=== PATIENT | female | born 1940 | race Two or more races ===

== ENCOUNTER 2018-02-06 21:37 | Inpatient (IN) | payer MEDICARE, OTHER ==
[~2018-02-06] VITALS: Ht 157.5 cm; Wt 50.3 kg
--- NOTE | 2018-02-06 21:50 | NUR ---
BIBFAMILY C/O ALTERED MENTAL STATUS X 3 DAYS. PER FAMILY STATES PT ON NEW MEDICATION DOSAGE. NAD NOTED, VSS, RESP EVEN AND UNLABORED, PT WAS PUT ON MONITOR. WAITING FOR MD SINGER.
[2018-02-06] MEDS ORDERED: IV NS 0.9% 1,000 ML BAG IV ONE (22:30)
[2018-02-06 22:45] LABS: BASOPHILS # (AUTO) 0.1 /CMM (0.0-0.2); BASOPHILS % (AUTO) 0.7 % (0.0-2.0); EOSINOPHILS % (AUTO) 0.8 % (0.0-6.0); HEMATOCRIT 34 % (33-45); HEMOGLOBIN 11.8 g/dL (11.5-14.8); LYMPHOCYTES # (AUTO) 1.6 /CMM (0.8-4.8); LYMPHOCYTES % (AUTO) 20.5 % (20.0-44.0); MEAN CORPUSCULAR HGB CONC 35 g/dl (31.0-36.0); MEAN CORPUSCULAR VOLUME 86 fL (82-100); MONOCYTES # (AUTO) 0.7 /CMM (0.1-1.30); MONOCYTES % (AUTO) 8.6 % (2.0-12.0); NEUTROPHILS # (AUTO) 5.3 /CMM (1.8-8.9); NEUTROPHILS % (AUTO) 69.4 % (43.0-81.0); PLATELET COUNT (AUTO) 271 /CMM (150-450); RDW COEFFICIENT OF VARIATION 14.3 (11.5-15.0); RED BLOOD CELL COUNT(AUTO) 3.95 MIL/uL (4.0-5.2); WHITE BLOOD COUNT (AUTO) 7.6 K/uL (4.3-11.0)
[2018-02-06 22:50] LABS: INR 0.96 (0.87-1.13)
[2018-02-06 22:54] LABS: ALANINE AMINOTRANSFERASE 386 U/L (12-78); ALBUMIN 3.2 g/dL (3.4-5.0); ALKALINE PHOSPHATASE 102 U/L (46-116); ASPARTATE AMINOTRANSFERASE 142 U/L (15-37); BILIRUBIN,DIRECT 0.3 mg/dL (0.0-0.2); BILIRUBIN,TOTAL 0.8 mg/dL (0.2-1.0); CALCIUM, SERUM 9.7 mg/dL (8.5-10.1); CARBON DIOXIDE 25 mmol/L (21-32); CHLORIDE 110 mmol/L (98-107); CREATININE 1.4 mg/dL (0.6-1.3); GLUCOSE 111 mg/dL (74-106); POTASSIUM 3.3 mmol/L (3.5-5.1); SODIUM SERUM 145 mmol/L (136-145); TOTAL PROTEIN, SERUM 6.9 g/dL (6.4-8.2); TROPONIN I 0.038 ng/mL (0.00-0.056); UREA NITROGEN, BLOOD 36 mg/dL (7-18)
--- NOTE | 2018-02-06 22:54 | NUR ---
urine collected, called lab for mixing picker tender
[2018-02-06 23:09] LABS: APPEARANCE,URINE CLEAR (CLEAR); BILIRUBIN,URINE 2+ (NEGATIVE); BLOOD, URINE NEGATIVE Ery/uL (NEGATIVE); KETONES,URINE 1+ (NEGATIVE); LEUKOCYTE ESTERASE ,URINE NEGATIVE (NEGATIVE); NITRITE, URINE NEGATIVE (NEGATIVE); PH,URINE 5.5 (5.0-8.0); PROTEIN,URINE 1+ mg/dl (NEGATIVE); UGLUCOSE NEGATIVE (NEGATIVE)
[2018-02-06 23:10] LABS: COLOR,URINE DARK YELLOW (YELLOW)
--- NOTE | 2018-02-06 23:19 | NUR ---
pt back from ctscan
[2018-02-06 23:20] LABS: BACTERIA,URINE Few /HPF (None Seen); RBC,URINE 0-2 /HPF (0-2); SQUAMOUS EPITHELIAL CELL,UR Few /HPF (None Seen); WBC,URINE 0-2 /HPF (0-3)
[2018-02-06 23:21] LABS: MUCUS,URINE Few /LPF (None Seen)
--- NOTE | 2018-02-07 00:11 | NUR ---
REPORT GIVEN TO DEEPA/RN AT THIS TIME. PT AND FAMILY AWARE AND AGREE TO THE PLAN OF CARE. TO BE TRANSPORTED TO [facility] IN STABLE CONDITION. RESP EVEN AND UNLABORED.
[2018-02-07 01:15] VITALS: BP 142/78
[2018-02-07] MEDS ORDERED: DONE5TAB7 PO (01:39)
[2018-02-07] MEDS ORDERED: VALS80TA2 PO (01:39)
[2018-02-07] MEDS ORDERED: TRAZ-182 PO (01:39)
[2018-02-07] MEDS ORDERED: LANS30CA54 PO (01:39)
[2018-02-07] MEDS ORDERED: CYAN10009 PO (01:39)
[2018-02-07] MEDS ORDERED: ASPI-605 PO (01:39)
[2018-02-07] MEDS ORDERED: MIRT15TA7 PO (01:39)
--- NOTE | 2018-02-07 02:13 | NUR ---
MS RN NOTES RECEIVED PT FROM ER ON ROOM AIR SATURATING 100%. BLOOD PRESSURE OF 142/78MMHG, TEMPT OF 97.6 HR OF 94, RR OF 17. PT IS IN NO APPARENT DISTRESS. DAUGHTER AT BEDSIDE. NO CONFUSION OR AGITATION AT THE MOMENT. ADMITTING ORDERS IN. ADMISSION ASSESSMENT DONE. WILL CONTINUE TO MONITOR PT CLOSELY.
--- NOTE | 2018-02-07 02:34 | NUR ---
MS RN NOTES NO POTASSIUM 20MEQ IN THE OMNICELL. NURSING STEAM TENDER MADE AWARE OF IT.
[2018-02-07] MEDS ORDERED: IV PREMIX NS +20MEQ KCL 1 L IV ONE (03:10)
[2018-02-07] MEDS: Potassium Chloride 20 MEQ in IV NS 0.9% 1,000 ML IV PRN ×2 (03:15→15:52)
[2018-02-07 04:00] VITALS: BP 140/74
[2018-02-07 06:47] LABS: BASOPHILS % (AUTO) 0.2 % (0.0-2.0); HEMATOCRIT 30 % (33-45); HEMOGLOBIN 10.4 g/dL (11.5-14.8); LYMPHOCYTES # (AUTO) 1.8 /CMM (0.8-4.8); LYMPHOCYTES % (AUTO) 26.6 % (20.0-44.0); MEAN CORPUSCULAR HGB CONC 35 g/dl (31.0-36.0); MEAN CORPUSCULAR VOLUME 86 fL (82-100); MONOCYTES # (AUTO) 0.6 /CMM (0.1-1.30); MONOCYTES % (AUTO) 9.4 % (2.0-12.0); NEUTROPHILS # (AUTO) 4.3 /CMM (1.8-8.9); NEUTROPHILS % (AUTO) 62.8 % (43.0-81.0); PLATELET COUNT (AUTO) 223 /CMM (150-450); RDW COEFFICIENT OF VARIATION 14.8 (11.5-15.0); RED BLOOD CELL COUNT(AUTO) 3.48 MIL/uL (4.0-5.2); WHITE BLOOD COUNT (AUTO) 6.9 K/uL (4.3-11.0)
[2018-02-07 07:06] LABS: ALANINE AMINOTRANSFERASE 338 U/L (12-78); ALBUMIN 2.7 g/dL (3.4-5.0); ALKALINE PHOSPHATASE 90 U/L (46-116); ASPARTATE AMINOTRANSFERASE 136 U/L (15-37); BILIRUBIN,TOTAL 0.6 mg/dL (0.2-1.0); CALCIUM, SERUM 8.8 mg/dL (8.5-10.1); CARBON DIOXIDE 22 mmol/L (21-32); CHLORIDE 113 mmol/L (98-107); CREATININE 1.1 mg/dL (0.6-1.3); GLUCOSE 86 mg/dL (74-106); POTASSIUM 3.3 mmol/L (3.5-5.1); SODIUM SERUM 145 mmol/L (136-145); TOTAL PROTEIN, SERUM 5.8 g/dL (6.4-8.2)
--- NOTE | 2018-02-07 07:19 | NUR ---
MS RN NOTES NO ACUTE CHANGES NOTED DURING THE SHIFT. PROVIDED COMFORT AND SAFETY. DUE MEDS GIVEN. WILL ENDORSE TO THE AM FOR LINDA.
--- NOTE | 2018-02-07 07:33 | NUR ---
MS RN OPENING NOTES RECEIVED PATIENT IN STABLE CONDITION. IN NO APPARENT DISTRESS. IV LINE IS INTACT AND PATENT. BEDSIDE RAILS ARE UPX2. BED IS LOCKED AND LOWERED. CALL LIGHT IS WITHIN REACH. WILL CONTINUE TO MONITOR.
[2018-02-07 07:40] LABS: UREA NITROGEN, BLOOD 29 mg/dL (7-18)
[2018-02-07 08:00] VITALS: BP_SYST 138; BP_SYST 155; BP_DIAS 68; BP_DIAS 79
[2018-02-07] MEDS: PANTOPRAZOLE 40 MG TABLET.DR PO SCH (08:28)
[2018-02-07] MEDS: CYANOCOBALAMIN 500 MCG TABLET PO SCH (09:00)
[2018-02-07] MEDS: VALSARTAN 80 MG TABLET PO SCH (09:00)
[2018-02-07] MEDS: ASPIRIN EC 81 MG TABLET.DR PO SCH (09:00)
[2018-02-07] MEDS: CIPROFLOXACIN IV RTU 400 MG in PREMIX 1 EA IV SCH ×2 (13:53→23:05)
[2018-02-07] MEDS: OLANZAPINE 2.5 MG TABLET PO SCH ×2 (13:53→23:06)
--- NOTE | 2018-02-07 14:32 | NUR ---
Patient resides at home with family. He requires assistance with adl's. Has hx of dementia and anxiety. Family is involved and supportive with adl's. Possible geropsyche admit once medically clear. Addendum: 02/07/18 at 1432 by AP CRAIG RN Amended: Links added.
[2018-02-07] MEDS: LORAZEPAM INJ 2 MG/ML VIAL IV PRN (15:50)
--- NOTE | 2018-02-07 16:00 | NUR ---
GAVE ATIVAN 1MG IV FOR INCREASED ANXIETY.
[2018-02-07] MEDS: DONEPEZIL 5 MG TABLET PO SCH (17:12)
[2018-02-07] MEDS ORDERED: TRAZODONE 50 MG TABLET PO SCH (18:00)
[2018-02-07] MEDS ORDERED: MIRTAZAPINE 15 MG TABLET PO SCH ×2 (18:00)
--- NOTE | 2018-02-07 18:04 | NUR ---
MS RN CLOSING NOTES PATIENT IS RESTING SITTING ON CHAIR IN NO APPARENT DISTRESS. SITTER AT BEDSIDE. CALL LIGHT IS WITHIN REACH. ALL NEEDS WERE MET. IV LINE IS INTACT AND PATENT. WILL ENDORSE CARE TO ROLLER SKATER NURSE FOR LINDA.
[2018-02-07 20:00] VITALS: BP 142/78
--- NOTE | 2018-02-07 20:00 | NUR ---
RN INITIAL NOTES RECEIVED PATIENT IN STABLE CONDITION. PT HAS A 1:1 SITTER. DAUGHTER AT BEDSIDE. IN NO APPARENT DISTRESS. IV LINE IS INTACT AND PATENT. BEDSIDE RAILS ARE UPX2. BED IS LOCKED AND LOWERED. CALL LIGHT IS WITHIN REACH. WILL CONTINUE TO MONITOR.
[2018-02-07] MEDS: ATORVASTATIN 10 MG TABLET PO SCH (23:05)
[2018-02-08 04:00] VITALS: BP 131/69
[2018-02-08] MEDS: Potassium Chloride 20 MEQ in IV NS 0.9% 1,000 ML IV PRN ×2 (05:09→18:11)
--- NOTE | 2018-02-08 06:30 | NUR ---
RN CLOSING NOTES PATIENT IS RESTING IN BED, NO APPARENT DISTRESS. SITTER AT BEDSIDE. CALL LIGHT IS WITHIN REACH. ALL NEEDS WERE MET. IV LINE IN 324G IN R WRIST IS INTACT AND PATENT. WILL ENDORSE CARE TO AM SHIFT NURSE FOR LINDA.
[2018-02-08 06:39] LABS: BASOPHILS % (AUTO) 0.1 % (0.0-2.0); EOSINOPHILS % (AUTO) 1.8 % (0.0-6.0); HEMATOCRIT 27 % (33-45); HEMOGLOBIN 9.4 g/dL (11.5-14.8); LYMPHOCYTES # (AUTO) 1.6 /CMM (0.8-4.8); LYMPHOCYTES % (AUTO) 29.9 % (20.0-44.0); MEAN CORPUSCULAR HGB CONC 35 g/dl (31.0-36.0); MEAN CORPUSCULAR VOLUME 86 fL (82-100); MONOCYTES # (AUTO) 0.5 /CMM (0.1-1.30); MONOCYTES % (AUTO) 10.2 % (2.0-12.0); NEUTROPHILS # (AUTO) 3.1 /CMM (1.8-8.9); PLATELET COUNT (AUTO) 195 /CMM (150-450); RDW COEFFICIENT OF VARIATION 14.8 (11.5-15.0); RED BLOOD CELL COUNT(AUTO) 3.19 MIL/uL (4.0-5.2); WHITE BLOOD COUNT (AUTO) 5.3 K/uL (4.3-11.0)
[2018-02-08 06:48] LABS: CALCIUM, SERUM 8.2 mg/dL (8.5-10.1); CARBON DIOXIDE 24 mmol/L (21-32); CHLORIDE 111 mmol/L (98-107); CREATININE 1.1 mg/dL (0.6-1.3); GLUCOSE 102 mg/dL (74-106); MAGNESIUM 1.5 mg/dL (1.8-2.4); PHOSPHORUS 2.3 mg/dL (2.5-4.9); POTASSIUM 3.1 mmol/L (3.5-5.1); SODIUM SERUM 143 mmol/L (136-145); UREA NITROGEN, BLOOD 18 mg/dL (7-18)
[2018-02-08] MEDS: PANTOPRAZOLE 40 MG TABLET.DR PO SCH (07:30)
--- NOTE | 2018-02-08 08:00 | NUR ---
MS/RN Vital signs Patient refusing vital signs to be taken.
[2018-02-08] MEDS: CIPROFLOXACIN IV RTU 400 MG in PREMIX 1 EA IV SCH ×2 (08:14→22:42)
[2018-02-08] MEDS: VALSARTAN 80 MG TABLET PO SCH (08:15)
[2018-02-08] MEDS: ASPIRIN EC 81 MG TABLET.DR PO SCH (08:15)
[2018-02-08] MEDS: OLANZAPINE 2.5 MG TABLET PO SCH (08:16)
[2018-02-08] MEDS: CYANOCOBALAMIN 500 MCG TABLET PO SCH (08:16)
--- NOTE | 2018-02-08 09:15 | NUR ---
MS/RN Refusing medications Refusing all oral medications, will reattempt later this morning.
[2018-02-08] MEDS: OLANZAPINE 5 MG/TAB.RAPDIS PO SCH ×2 (10:00→22:42)
[2018-02-08] MEDS ORDERED: OLANZAPINE 10 MG VIAL IM PRN (10:00)
[2018-02-08] MEDS: Magnesium 1GM/D5W 100ML PREMIX 100 ML IV SCH ×2 (10:29→11:09)
--- NOTE | 2018-02-08 10:30 | NUR ---
MS/RN Labs Labs reviewed: -mag - 1.5, replaced with 2gm -k+ 3.3, replaced with 10meq
--- NOTE | 2018-02-08 10:47 | NUR ---
MS/RN Refusing skin assessment Patient refusing for skin assessment.
--- NOTE | 2018-02-08 10:51 | NUR ---
MS/RN S/B Dr Rogel Seen by Dr Rogel - medications adjusted, for possible GPS admission when medically cleared. Made aware that patient continues to take oral medications.
[2018-02-08] MEDS: POTASSIUM CL. PREMIX PERIPHER. 50 ML IV SCH ×2 (11:30→12:11)
--- NOTE | 2018-02-08 14:00 | NUR ---
MS/RN S/B Julianne Rodrigues READINESS PARAPROFESSIONAL Seen by READINESS PARAPROFESSIONAL - made aware that patient continues to refuse all medications and eat or drink. Once medically cleared, will transfer to [facility].
[2018-02-08] MEDS ORDERED: K PHOS NEUTRAL 250 MG TABLET PO ONE (15:30)
[2018-02-08] MEDS: DONEPEZIL 5 MG TABLET PO SCH (17:01)
[2018-02-08] MEDS: LORAZEPAM INJ 2 MG/ML VIAL IV PRN (18:11)
--- NOTE | 2018-02-08 18:23 | NUR ---
MS/RN End note Family at bedside and updated to plan of care. Patient continues to refuse to eat, drink or take medications. Ativan 1mg given to relax patient. Safety measures in place, sitter remains within arms reach of patient at all times. Will endorse to warehouse supervisor 3rd shift.
[2018-02-08 20:00] VITALS: BP 131/69
[2018-02-08] MEDS: ATORVASTATIN 10 MG TABLET PO SCH (22:43)
[2018-02-09] MEDS ORDERED: OLANZAPINE 10 MG VIAL IM PRN (00:30)
[2018-02-09 04:00] VITALS: BP 114/91
[2018-02-09 06:45] LABS: CALCIUM, SERUM 8.4 mg/dL (8.5-10.1); CARBON DIOXIDE 23 mmol/L (21-32); CHLORIDE 113 mmol/L (98-107); CREATININE 1.3 mg/dL (0.6-1.3); GLUCOSE 96 mg/dL (74-106); MAGNESIUM 1.9 mg/dL (1.8-2.4); POTASSIUM 4.3 mmol/L (3.5-5.1); SODIUM SERUM 145 mmol/L (136-145); UREA NITROGEN, BLOOD 14 mg/dL (7-18)
--- NOTE | 2018-02-09 07:10 | NUR ---
MS RN OPENING NOTES RECEIVED PT FROM NIGHTSHIFT NURSE IN STABLE CONDITION. PT IS A/O X2. NO SOB OR SIGNS OF DISTRESS NOTED. BREATHING IS EVEN AND UNLABORED. PT REFUSING AM VITALS. PER NIGHTSHIFT NURSE, SHE HAS REFUSED ALL MEDICATION ADMINISTRATION ALONG WITH CARE. IV TO RIGHT WRIST NOTED TO BE PATENT AND INTACT. NO REDNESS OR SIGNS OF INFILTRATION NOTED. PT TOLERATING IV INFUSION WELL. BED IN LOW LOCKED POSITION, SIDE RAILS UP X3, CALL LIGHT WITHIN REACH, 1:1 SITTER AT BEDSIDE. WILL CONTINUE TO MONITOR
[2018-02-09] MEDS: Potassium Chloride 20 MEQ in IV NS 0.9% 1,000 ML IV PRN ×2 (07:11→18:29)
[2018-02-09] MEDS: PANTOPRAZOLE 40 MG TABLET.DR PO SCH (07:30)
[2018-02-09] MEDS: CIPROFLOXACIN IV RTU 400 MG in PREMIX 1 EA IV SCH ×2 (08:17→20:26)
--- NOTE | 2018-02-09 08:43 | NUR ---
MS RN NOTES: PT REFUSAL PT REFUSED AM VITALS, BREAKFAST, AND PO MEDICATIONS
[2018-02-09] MEDS: OLANZAPINE 5 MG/TAB.RAPDIS PO SCH ×2 (09:00→20:26)
[2018-02-09] MEDS: CYANOCOBALAMIN 500 MCG TABLET PO SCH (09:00)
[2018-02-09] MEDS: ASPIRIN EC 81 MG TABLET.DR PO SCH (09:00)
[2018-02-09] MEDS: VALSARTAN 80 MG TABLET PO SCH (09:00)
--- NOTE | 2018-02-09 09:23 | NUR ---
MS RN NOTES: ZYPREXA ORDER DR. PHAM CALLED IN REGARDS TO PT'S CONDITION. PER , "PLACE AN ORDER FOR ZYPREXA 2.5MG PO Q6HR PRN. ONLY GIVE IM IF PT BECOMES REALLY AGITATED"
[2018-02-09] MEDS: OLANZAPINE 2.5 MG TABLET PO PRN (11:57)
[2018-02-09 16:00] VITALS: BP 134/77
[2018-02-09] MEDS: DONEPEZIL 5 MG TABLET PO SCH (17:41)
--- NOTE | 2018-02-09 18:48 | NUR ---
MS RN CLOSING NOTES PT REMAINS STABLE. ALL NEEDS WERE MET DURING SHIFT AND ORDERS CARRIED OUT ACCORDINGLY. PT TOOK HER 1800 MEDICATIONS ALONG WITH HER PRN ZYPREXA. DAUGHTER AND SITTER AT BEDSIDE. SAFETY MEASURES REMAIN IN PLACE. WILL ENDORSE TO NIGHTSHIFT NURSE FOR LINDA
--- NOTE | 2018-02-09 19:50 | NUR ---
RN INITIAL NOTES RECEIVED PATIENT IN STABLE CONDITION. PT HAS A 1:1 SITTER. STILL NON COMPLIANT WITH CARE, MEDICATION, MD AWARE WELL FAMILY. IN NO APPARENT DISTRESS. IV LINE IS INTACT AND PATENT. BEDSIDE RAILS ARE UPX2. BED IS LOCKED AND LOWERED. CALL LIGHT IS WITHIN REACH. WILL CONTINUE TO MONITOR.
[2018-02-09] MEDS: ATORVASTATIN 10 MG TABLET PO SCH (20:26)
[2018-02-10] VITALS: BP 127/66
[2018-02-10] MEDS: Potassium Chloride 20 MEQ in IV NS 0.9% 1,000 ML IV PRN (06:29)
--- NOTE | 2018-02-10 06:43 | NUR ---
MS RN CLOSING NOTES PT REMAINS STABLE. ALL NEEDS WERE MET DURING SHIFT AND ORDERS CARRIED OUT ACCORDINGLY. PT TOOK HER 2100 MEDICATIONS. DAUGHTER AND SITTER AT BEDSIDE. SAFETY MEASURES REMAIN IN PLACE. WILL ENDORSE TO AM SHIFT NURSE FOR LINDA
[2018-02-10 07:08] LABS: BASOPHILS % (AUTO) 0.1 % (0.0-2.0); EOSINOPHILS % (AUTO) 2.1 % (0.0-6.0); HEMATOCRIT 30 % (33-45); HEMOGLOBIN 10.2 g/dL (11.5-14.8); LYMPHOCYTES # (AUTO) 1.3 /CMM (0.8-4.8); LYMPHOCYTES % (AUTO) 23.9 % (20.0-44.0); MEAN CORPUSCULAR HGB CONC 35 g/dl (31.0-36.0); MEAN CORPUSCULAR VOLUME 87 fL (82-100); MONOCYTES # (AUTO) 0.5 /CMM (0.1-1.30); MONOCYTES % (AUTO) 8.9 % (2.0-12.0); NEUTROPHILS # (AUTO) 3.7 /CMM (1.8-8.9); PLATELET COUNT (AUTO) 193 /CMM (150-450); RDW COEFFICIENT OF VARIATION 15.3 (11.5-15.0); WHITE BLOOD COUNT (AUTO) 5.6 K/uL (4.3-11.0)
[2018-02-10 07:27] LABS: CALCIUM, SERUM 8.2 mg/dL (8.5-10.1); CARBON DIOXIDE 26 mmol/L (21-32); CHLORIDE 112 mmol/L (98-107); CREATININE 1.1 mg/dL (0.6-1.3); GLUCOSE 94 mg/dL (74-106); MAGNESIUM 1.7 mg/dL (1.8-2.4); SODIUM SERUM 143 mmol/L (136-145); UREA NITROGEN, BLOOD 10 mg/dL (7-18)
[2018-02-10 08:00] VITALS: BP 132/79
[2018-02-10] MEDS: CYANOCOBALAMIN 500 MCG TABLET PO SCH (08:32)
[2018-02-10] MEDS: OLANZAPINE 5 MG/TAB.RAPDIS PO SCH ×2 (08:33→20:46)
[2018-02-10] MEDS: VALSARTAN 80 MG TABLET PO SCH (08:35)
[2018-02-10] MEDS: PANTOPRAZOLE 40 MG TABLET.DR PO SCH (08:36)
[2018-02-10] MEDS: ASPIRIN EC 81 MG TABLET.DR PO SCH (08:36)
[2018-02-10] MEDS: CIPROFLOXACIN IV RTU 400 MG in PREMIX 1 EA IV SCH ×2 (08:36→20:46)
[2018-02-10] MEDS: Magnesium 1GM/D5W 100ML PREMIX 100 ML IV SCH ×2 (09:58→16:26)
[2018-02-10] MEDS: OLANZAPINE 2.5 MG TABLET PO PRN (12:14)
--- NOTE | 2018-02-10 12:20 | NUR ---
Patient shaked head and refuses to take medications. MD notified. Patient took medications later on while family at bedside. Discussed with family that patient had eaten poorly. Family stated that they will be present during mealtimes to assist their mother to be fed.
[2018-02-10 15:51] VITALS: BP 151/88
[2018-02-10 16:28] VITALS: BP 151/88
[2018-02-10] MEDS: DONEPEZIL 5 MG TABLET PO SCH (17:22)
[2018-02-10] MEDS ORDERED: ATOR10TA PO (19:00)
[2018-02-10] MEDS ORDERED: OLAN5TAB6 PO (19:00)
[2018-02-10] MEDS ORDERED: OLAN2.5T3 PO (19:00)
--- NOTE | 2018-02-10 19:30 | NUR ---
RN NOTES: RECEIVED AWAKE ON BED, ON SEMI FOWLERS POSITION, ON ROOM AIR SPO2-98%, NO SIGN OF ANY RESPIRATORY DISCOMFORT,A/OX2 WITH PERIODS OF CONFUSION, RN RE-ORIENTED HER TO UNIT AND STAFF ON DUTY FOR PARTS COUNTER ASSOCIATE;SITTER AND DAUGHTER PRESENT AT BEDSIDE;FALL,SAFETY AND ASPIRATION PRECAUTION OBSERVED,CALL LIGHT WITHIN EASY REACH, ON CLOSE WATCH.
[2018-02-10 20:00] VITALS: BP 155/88
--- NOTE | 2018-02-10 21:10 | NUR ---
RN NOTES: DUE ORAL MEDICATION GIVEN WITH APPLE SAUCE, PATIENT TAKE IT WITHOUT RESISTANCE,IV CIPRO/ATB STARTED.
--- NOTE | 2018-02-10 21:15 | NUR ---
RN NOTES: EXPLAINED TO PATIENT AND DAUGHTER, SHE WILL BE TRANSFERRED TO DE [facility] 325 BED-2, AGREED, TRANSFERRED AT 2115 WITH MEDICINE AND BELONGINGS.ENDORSED TO PORTIA FOR CONTINUITY OF CARE.
[2018-02-10 21:16] VITALS: BP 145/76
--- NOTE | 2018-02-10 21:16 | NUR ---
MS WORKDAY CONSULTANT NOTES: RECEIVED PATIENT FROM MAXIM, REPORT GIVEN BY MARYELLEN NICHOLAS. PATIENT WAS BROUGHT TO [facility] FLOOR VIA GURNEY, AOX2, ON ROOM AIR, BREATHING EVEN AND UNLABORED. PIV OVER LEFT WRIST G 22 INTACT AND PATENT TO FLUSH. RESTARTED IV CIPROFLOXACIN. PROVIDED FOR COMFORT AND SAFETY, BED IN LOWEST AND LOCKED POSITION, SIDERAILS UP X 3, CALL LIGHT WITHIN REACH, SITTER AND DAUGHTER AT BEDSIDE.
[2018-02-10] MEDS: ATORVASTATIN 10 MG TABLET PO SCH (21:51)
--- NOTE | 2018-02-10 22:00 | NUR ---
RN NOTES: SPOKE TO RESEARCH ASSOCIATE MOLECULAR BIOLOGYCHHAYA. THERE IS A DISCHARGE ORDER PLACED BY CYDNEY WINN TOOL GRINDER OPERATOR EXTERNAL OF 1856, TO GPS. HOWEVER, CRISIS TEAM STILL HAS TO DO EVALUATION ON HER. CHARGE NURSE CHHAYA ABLE TO SPEAK TO NOEL LEBRON OVER THE PHONE. PER NOEL, EVALUATION CAN BE DONE IN THE AM, IF NOT HER, ART / CAN DO IT.
--- NOTE | 2018-02-10 22:15 | NUR ---
RN NOTES: SPOKE TO DTR AT BEDSIDE, EDNA. PER DTR, THEY ARE AWARE THAT PATIENT WILL POSSIBLY GO TO GPS, BECAUSE OF HER REFUSAL TO TAKE MEDS/ NON COMPLIANCE. PER DTR, PATIENT LIVES WITH HER AND THAT PATIENT BECOMES ANXIOUS WHENEVER DTR LEAVES HER SIDE. FOR CALE, PER DTR, THEY WANT TO STAY IN MS FLOOR, STATES THAT HER MOTHER IS TIRED FROM BEING TRANSFERRED. INFORMED HER THAT THERE WILL BE A CRISIS TEAM TO DO AN EVALUATION FOR HER IN AM. DAUGHTER VRBALIZED AGREEMENT.
[2018-02-11] MEDS: Potassium Chloride 20 MEQ in IV NS 0.9% 1,000 ML IV PRN (03:01)
--- NOTE | 2018-02-11 06:49 | NUR ---
MS RN CLOSING NOTES: PATIENT IN BED, AOX1-2, ON ROOM AIR, BREATHING EVEN AND UNLABORED. APPEARS CALM AND IN NO DISTRESS, BUT NOTED TO BE WITHDRAWN AND UNCOOPERATIVE AT TIMES, REFUSING TO SPEAK TO NURSES, ONLY TO DAUGHTER WHO REMAINED AT BEDSIDE AND HELPED TRANSLATE. PIV OVER L WRIST G22 INTACT AND INFUSING WELL WITH NS + 20 MEQS KCL RUNNING AT 100 ML/HR. DUE MEDS GIVEN. WOUND TREATMENT DONE ORDERED, TURNED AND REPOSITIONED. PROVIDED FOR COMFORT AND SAFETY. BED IN LOWEST AND LOCKED POSITION, SIDERAILS UP X 3, BED ALARMS ON. SITTER AT BEDSIDE. WILL ENDORSE TO AM RN FOR LINDA.
--- NOTE | 2018-02-11 07:31 | NUR ---
MS OPEN NOTES: RECEIVED A BEDSIDE REPORT FROM DECK AND HULL ASSEMBLER NURSE. DAUGHTER IS AT BEDSIDE. PATIENT IS IN BED, AOX1-2, ON ROOM AIR, BREATHING EVEN AND UNLABORED. APPEARS CALM AND IN NO DISTRESS. BED IN LOWEST AND LOCKED POSITION, SIDERAILS UP X 3, BED ALARMS ON. SITTER AT BEDSIDE. WILL CONTINUE TO MONITOR AND ASSESS PATIENT.
[2018-02-11] MEDS: PANTOPRAZOLE 40 MG TABLET.DR PO SCH (08:06)
[2018-02-11] MEDS: ASPIRIN EC 81 MG TABLET.DR PO SCH (08:07)
[2018-02-11] MEDS: CYANOCOBALAMIN 500 MCG TABLET PO SCH (08:07)
[2018-02-11 08:08] VITALS: BP 141/81
[2018-02-11] MEDS: VALSARTAN 80 MG TABLET PO SCH (08:08)
[2018-02-11] MEDS: OLANZAPINE 5 MG/TAB.RAPDIS PO SCH (08:08)
[2018-02-11] MEDS: CIPROFLOXACIN IV RTU 400 MG in PREMIX 1 EA IV SCH (08:55)
--- NOTE | 2018-02-11 12:00 | NUR ---
CRISIS TEAM AT BEDSIDE. PATIENT PLACED ON 5150 HOLD.
--- NOTE | 2018-02-11 13:00 | NUR ---
FLOW FLOOR ATTENDANT NOTES DISCHARGE / TRANSFER TO GPS ORDER RECEIVED AND CARRIED OUT. PER CYDNEY ESPINOZA, PATIENT IS MEDICALLY CLEARED TO BE TRANSFERRED TO GPS. DAUGHTER AT BEDSIDE VERBALIZE UNDERSTANDING. DAUGHTER SIGNED BOTH BELONGING LIST FORM AND DISCHARGE INSTRUCTIONS FORMS; BOTH FORMS PLACED IN THE CHART. PICTURES WERE TAKEN BY CONING MACHINE OPERATOR RN AND PLACED IN THE CHART. REPORT GAVE TO CRISTOPHER BELTRÁN AT [facility]. IV SITE REMOVED. ID BAND REMOVED. TRUE XIONG TRANSFERRED PATIENT VIA A GEROCHAIR TO GPS.
[2018-02-11] MEDS ORDERED: OLAN2.5T3 PO (14:53)
[2018-02-11] MEDS ORDERED: ATOR10TA GT (14:53)
[2018-02-11] MEDS ORDERED: OLAN5TAB6 PO (14:53)
[2018-02-11] MEDS ORDERED: CIPROFLOXACIN HCL 250 MG TABLET PO SCH (21:00)
== END 2018-02-11 13:00 | DRG 683 ==
LOC: ER 21:38 → MEDSG1 02-07 00:18 → MED 02-10 21:01
PROVIDERS: ADMIT Internal Medicine Hematology & Oncology; ATTEND Nurse Practitioner Acute Care
DX: N17.0 Acute kidney failure with tubular necrosis (principal); E44.0 Moderate protein-calorie malnutrition; E86.0 Dehydration; G30.9 Alzheimer's disease, unspecified; F05 Delirium due to known physiological condition; R62.7 Adult failure to thrive; E87.6 Hypokalemia; F41.9 Anxiety disorder, unspecified; F02.80 Dementia in other diseases classified elsewhere, unspecified severity, without behavioral disturbance, psychotic disturbance, mood disturbance, and anxiety; I10 Essential (primary) hypertension; Z90.49 Acquired absence of other specified parts of digestive tract; F32.9 Major depressive disorder, single episode, unspecified; H26.9 Unspecified cataract; Z86.73 Personal history of transient ischemic attack (TIA), and cerebral infarction without residual deficits; Z87.11 Personal history of peptic ulcer disease; Z79.899 Other long term (current) drug therapy
CPT/HCPCS: 36415; 70450-TC; 71045-TC; 80048-TC; 80053-TC; 80076-TC; 81000-TC; 83735-TC; 84100-TC; 84484-TC; 85025-TC; 85730-TC; 87081-TC; 87086-TC; A4216; A4606; J0744; J2060; J3475; J3480; J3490; J7030; J7050; Z7610

== ENCOUNTER 2018-02-11 14:37 | Inpatient (IN) | payer MEDICARE, OTHER ==
[~2018-02-11] VITALS: Ht 152.4 cm; Wt 52.2 kg
[~2018-02-11 14:37] MED LIST: ASPI-605 PO; ATOR10TA PO; CYAN10009 PO; DONE5TAB7 PO; LANS30CA54 PO; MIRT15TA7 PO; OLAN2.5T3 PO; OLAN5TAB6 PO; TRAZ-182 PO; VALS80TA2 PO
[2018-02-11] MEDS ORDERED: ATOR10TA GT (14:53)
[2018-02-11] MEDS ORDERED: OLAN5TAB6 PO (14:53)
[2018-02-11] MEDS ORDERED: OLAN2.5T3 PO (14:53)
[2018-02-11 15:07] VITALS: BP 112/66
[2018-02-11] MEDS ORDERED: MAG HYDROX/AL HYDROX/SIMETH 30 ML UDC PO PRN (15:30)
[2018-02-11] MEDS ORDERED: ACETAMINOPHEN 325 MG TABLET PO PRN (15:30)
[2018-02-11] MEDS ORDERED: MAGNESIUM HYDROXIDE 30 ML UDC PO PRN (15:30)
[2018-02-11] MEDS ORDERED: LORAZEPAM 0.5 MG TABLET PO PRN (15:30)
--- NOTE | 2018-02-11 15:37 | NUR ---
GPS/RN RECEIVED PT DIRECT ADMIT FROM MS ON 5150 FOR GD. ADMITTING ORDERS FROM DR PHAM RECEIVED AND CARRIED OUT. PA MADE AWARE OF ADMISSION. FAMILY PRESENT ON ADMISSION. PICTURES TAKEN. MRSA SWAB COLLECTED AND SENT TO THE LAB.
[2018-02-11 16:18] VITALS: BP 115/65
[2018-02-11 20:16] VITALS: BP 132/69
[2018-02-11] MEDS ORDERED: OLANZAPINE 5 MG/TAB.RAPDIS PO SCH (21:00)
[2018-02-11] MEDS: CIPROFLOXACIN HCL 500 MG TABLET PO SCH (21:37)
[2018-02-11] MEDS: OLANZAPINE 2.5 MG TABLET PO SCH (21:38)
[2018-02-11] MEDS: ATORVASTATIN 10 MG TABLET PO SCH (21:38)
[2018-02-11] MEDS: DONEPEZIL 5 MG TABLET PO SCH (21:38)
[2018-02-12 08:00] VITALS: BP 144/85
[2018-02-12] MEDS: CIPROFLOXACIN HCL 500 MG TABLET PO SCH ×2 (09:18→21:46)
[2018-02-12] MEDS: PANTOPRAZOLE 40 MG TABLET.DR PO SCH (09:18)
[2018-02-12] MEDS: OLANZAPINE 2.5 MG TABLET PO SCH ×2 (09:19→21:46)
[2018-02-12] MEDS: VALSARTAN 80 MG TABLET PO SCH (09:19)
[2018-02-12] MEDS: ASPIRIN 81 MG TAB.CHEW PO SCH (09:19)
[2018-02-12] MEDS: Z GUARD REMEDY 2 OZ OINT TP SCH (09:20)
--- NOTE | 2018-02-12 14:14 | NUR ---
WOUND CARE CONSULT: PT PRESENTS WITH SACRAL DEEP TISSUE INJURY WHICH IS INTACT, PRESENT ON ADMISSION. RECOMMENDATIONS MADE FOR WOUND CARE AND SKIN PROTECTION. DISCUSSED WITH NURSING STAFF. WILL SEE PRN. GRANT IN AGREEMENT WITH PLAN OF CARE. CURRENT SYED SCORE IS 13. Addendum: 02/12/18 at 1416 by VELVET GRAHAM WNDNU Amended: Links added.
[2018-02-12 16:00] VITALS: BP 137/77
--- NOTE | 2018-02-12 19:30 | NUR ---
GPS RN NOTE: PATIENT RESTING IN BED, NO ACUTE DISTRESS NOTED, DAUGHTER AT BEDSIDE. BREATHING EVEN AND UNLABORED, NO SOB NOTED. PATIENT CALM AND COOPERATIVE AT THIS TIME. WILL CONTINUE TO MONITOR.
[2018-02-12 19:37] VITALS: BP 138/88
[2018-02-12] MEDS: ATORVASTATIN 10 MG TABLET PO SCH (21:46)
[2018-02-12] MEDS: DONEPEZIL 5 MG TABLET PO SCH (21:46)
[2018-02-13] MEDS: TEMAZEPAM 7.5 MG CAPSULE PO PRN ×2 (00:16→21:33)
--- NOTE | 2018-02-13 00:30 | NUR ---
GPS RN NOTE: PATIENT AWAKE AND WANDERING GI[place]ANO WITH DAUGHTER, PER DAUGHTER REQUEST FOR SLEEPING MEDICATION. RESTORIL 7.5MG 1 CAP ORAL GIVEN PER MD ORDER. WILL CONTINUE TO MONITOR.
--- NOTE | 2018-02-13 02:30 | NUR ---
GPS RN NOTE: PATIENT ANXIOUS AND UNABLE TO SLEEP, PER PATIENT DAUGHTER REQUESTING ANTIANXIETY MEDICATIONS. ATIVAN 0.5MG 1 TABLET ORAL GIVEN PER MD ORDER. WILL CONTINUE TO MONITOR.
[2018-02-13 07:18] LABS: BASOPHILS % (AUTO) 0.1 % (0.0-2.0); HEMATOCRIT 32 % (33-45); HEMOGLOBIN 10.9 g/dL (11.5-14.8); LYMPHOCYTES # (AUTO) 1.5 /CMM (0.8-4.8); LYMPHOCYTES % (AUTO) 26.7 % (20.0-44.0); MEAN CORPUSCULAR HGB CONC 35 g/dl (31.0-36.0); MEAN CORPUSCULAR VOLUME 86 fL (82-100); MONOCYTES # (AUTO) 0.5 /CMM (0.1-1.30); MONOCYTES % (AUTO) 8.6 % (2.0-12.0); NEUTROPHILS # (AUTO) 3.4 /CMM (1.8-8.9); NEUTROPHILS % (AUTO) 61.6 % (43.0-81.0); PLATELET COUNT (AUTO) 210 /CMM (150-450); RDW COEFFICIENT OF VARIATION 15.2 (11.5-15.0); RED BLOOD CELL COUNT(AUTO) 3.66 MIL/uL (4.0-5.2); WHITE BLOOD COUNT (AUTO) 5.6 K/uL (4.3-11.0)
[2018-02-13 07:34] LABS: ALANINE AMINOTRANSFERASE 116 U/L (12-78); ALBUMIN 2.5 g/dL (3.4-5.0); ALKALINE PHOSPHATASE 81 U/L (46-116); ASPARTATE AMINOTRANSFERASE 44 U/L (15-37); BILIRUBIN,TOTAL 0.5 mg/dL (0.2-1.0); CALCIUM, SERUM 8.9 mg/dL (8.5-10.1); CARBON DIOXIDE 29 mmol/L (21-32); CHLORIDE 108 mmol/L (98-107); CHOLESTEROL 116 mg/dL (<200); CREATININE 1.3 mg/dL (0.6-1.3); GLUCOSE 95 mg/dL (74-106); HDL CHOLESTEROL 36 mg/dL (40-60); LDL 65 mg/dL (0-99); MAGNESIUM 1.9 mg/dL (1.8-2.4); PHOSPHORUS 3.8 mg/dL (2.5-4.9); POTASSIUM 3.8 mmol/L (3.5-5.1); SODIUM SERUM 143 mmol/L (136-145); TOTAL PROTEIN, SERUM 5.9 g/dL (6.4-8.2); TRIGLYCERIDES 113 mg/dL (30-150); UREA NITROGEN, BLOOD 17 mg/dL (7-18)
[2018-02-13 08:00] VITALS: BP 134/55
[2018-02-13] MEDS: PANTOPRAZOLE 40 MG TABLET.DR PO SCH (08:15)
[2018-02-13] MEDS: ASPIRIN 81 MG TAB.CHEW PO SCH (08:15)
[2018-02-13] MEDS: VALSARTAN 80 MG TABLET PO SCH (08:15)
[2018-02-13] MEDS: OLANZAPINE 2.5 MG TABLET PO SCH ×2 (08:15→21:32)
[2018-02-13] MEDS: CIPROFLOXACIN HCL 500 MG TABLET PO SCH ×2 (08:15→21:32)
[2018-02-13] MEDS: Z GUARD REMEDY 2 OZ OINT TP SCH (08:18)
[2018-02-13] MEDS: VENLAFAXINE XR 37.5 MG CAP.SR.24H PO SCH (13:11)
--- NOTE | 2018-02-13 15:52 | NUR ---
Initial Discharge Plan: Pt needs placement. Per daughter, pt needs to be placed at SNF upon discharge. Pts daughter has identified [facility] and [facility] as options for placement. SW will help for a safe and proper discharge home in collaboration with MD and pts daughter Christian Howard [phone].
--- NOTE | 2018-02-13 15:53 | NUR ---
SW contacted pts daughter Christian Howard [phone] for collateral information.
[2018-02-13 16:00] VITALS: BP 119/66
--- NOTE | 2018-02-13 16:02 | NUR ---
CHRISTINA faxed referral to Peyton from [facility] Address: [address], [place] [address] fax: [phone].
--- NOTE | 2018-02-13 16:07 | NUR ---
CHRISTINA faxed referral to Cindy from [facility] Address: [address] [facility], [place] [address] fax: [phone].
--- NOTE | 2018-02-13 20:00 | NUR ---
GPS RN NOTES: PATIENT SON, REQUESTING NOT TO GIVE THE PATIENT HER LIPITOR MEDICATION SCHEDULED AT 2200 FOR REASONS DUE TO THE SIDE EFFECTS. TO RELAY SAID CONCERN TO MD. WILL INFORM DAY SHIFT NURSE.
[2018-02-13 20:05] VITALS: BP 149/76
[2018-02-13] MEDS: DONEPEZIL 5 MG TABLET PO SCH (21:32)
[2018-02-13] MEDS: ATORVASTATIN 10 MG TABLET PO SCH (22:00)
--- NOTE | 2018-02-14 07:30 | NUR ---
DR. DON, IN TO SEE PT.PT. STABLE NO COMPLAINTS.
[2018-02-14 08:22] VITALS: BP 125/68
[2018-02-14] MEDS: ASPIRIN 81 MG TAB.CHEW PO SCH (08:36)
[2018-02-14] MEDS: OLANZAPINE 2.5 MG TABLET PO SCH ×3 (08:36→21:01)
[2018-02-14] MEDS: PANTOPRAZOLE 40 MG TABLET.DR PO SCH (08:36)
[2018-02-14] MEDS: VALSARTAN 80 MG TABLET PO SCH (08:36)
[2018-02-14] MEDS: CIPROFLOXACIN HCL 500 MG TABLET PO SCH ×2 (08:36→21:01)
[2018-02-14] MEDS: Z GUARD REMEDY 2 OZ OINT TP SCH (08:37)
[2018-02-14] MEDS: CYANOCOBALAMIN 500 MCG TABLET PO SCH (11:48)
[2018-02-14] MEDS: VENLAFAXINE XR 37.5 MG CAP.SR.24H PO SCH (13:00)
--- NOTE | 2018-02-14 15:17 | NUR ---
SW contacted Peyton from [facility] Address: [address] [place] [address] fax: [phone] for an update on referral. Peyton stated that DON had declined referral due to pt being in an inpatient psych unit and believing pt will not benefit from their facility.
[2018-02-14 16:00] VITALS: BP 114/65
--- NOTE | 2018-02-14 16:15 | NUR ---
Per pts daughter request CHRISTINA faxed referral to Cindy from [facility] Address: [address] , [place] [address] fax: [phone]. CHRISTINA informed pts daughter that pt had been approved to [facility] however, pts daughter wanted CHRISTINA to refer to this facility. Addendum: 02/14/18 at 1628 by RONALD VASQUEZ ABOVE IS INCORRECT NOTE PLEASE DISREGARD!
[2018-02-14] MEDS ORDERED: DONEPEZIL 5 MG TABLET PO SCH (18:00)
[2018-02-14 20:00] VITALS: BP 98/59
[2018-02-14 20:02] VITALS: BP 98/59
[2018-02-14] MEDS: ATORVASTATIN 10 MG TABLET PO SCH (21:01)
[2018-02-14] MEDS: DONEPEZIL 5 MG TABLET PO SCH (21:03)
[2018-02-14] MEDS: TEMAZEPAM 7.5 MG CAPSULE PO PRN (21:28)
--- NOTE | 2018-02-14 21:28 | NUR ---
PT'S DTR AT BED SIDE, AND PER DTR PT IS REQUESTING FOR SLEEPING PILL, RESTORIL GIVEN ORDERED. BP : 111/60, HR : 95, RR: 18, 02 SAT : 95 %. WILL CONT TO MONITOR.
[2018-02-14] MEDS ORDERED: ATORVASTATIN 10 MG TABLET GT SCH (22:00)
[2018-02-15 08:45] VITALS: BP 111/60
[2018-02-15] MEDS: PANTOPRAZOLE 40 MG TABLET.DR PO SCH (08:47)
[2018-02-15] MEDS: ASPIRIN 81 MG TAB.CHEW PO SCH (08:47)
[2018-02-15] MEDS: CYANOCOBALAMIN 500 MCG TABLET PO SCH (08:47)
[2018-02-15] MEDS: CIPROFLOXACIN HCL 500 MG TABLET PO SCH ×2 (08:47→21:27)
[2018-02-15] MEDS: OLANZAPINE 2.5 MG TABLET PO SCH ×3 (08:47→21:27)
[2018-02-15] MEDS: VALSARTAN 80 MG TABLET PO SCH (08:49)
[2018-02-15] MEDS ORDERED: VALSARTAN 80 MG TABLET PO SCH (09:00)
[2018-02-15] MEDS ORDERED: ASPIRIN EC 81 MG TABLET.DR PO SCH (09:00)
[2018-02-15] MEDS: Z GUARD REMEDY 2 OZ OINT TP SCH (09:31)
--- NOTE | 2018-02-15 10:08 | NUR ---
CHRISTINA faxed referral to Jorge from [facility] [address] [address] [address] [address]. fax [phone].
--- NOTE | 2018-02-15 11:02 | NUR ---
Cindy from [facility] Address: [address] [facility], [place] [address] fax: [phone] contacted SW to inform her that pt was not accepted to their facility due to facility not being able to meet pts needs.
--- NOTE | 2018-02-15 11:08 | NUR ---
CHRISTINA contacted pts daughter Christian Howard [phone] to inform her that pt will be discharged tomorrow 02/16/18 at 10am [address] Pts daughter agreed to discharge plan.
[2018-02-15] MEDS: VENLAFAXINE XR 37.5 MG CAP.SR.24H PO SCH ×2 (12:07→13:00)
--- NOTE | 2018-02-15 13:56 | NUR ---
Per pts daughter's request SW faxed referral to Kiki at [facility] Address: [address] [place] [address]
--- NOTE | 2018-02-15 13:58 | NUR ---
Per pts daughters request SW faxed referral to Trinidad at [place] [id number], [place] [address] .
--- NOTE | 2018-02-15 13:58 | NUR ---
GPS/RN-NOTES EFFEXOR XR 75MG SCHEDULED AT 1300 NOT ADMINISTER DUE TO A DOSE WAS ADMINISTERED EARLIER AROUND 1207 PM . LEI (PHARMACIES) WAS AWARE AND STATED" JUST SKIP THAT 1300 DOSE."
[2018-02-15 16:00] VITALS: BP 115/66
[2018-02-15 20:00] VITALS: BP 117/72
[2018-02-15] MEDS: ATORVASTATIN 10 MG TABLET PO SCH (21:27)
[2018-02-15] MEDS: DONEPEZIL 5 MG TABLET PO SCH (21:27)
[2018-02-15] MEDS: TEMAZEPAM 7.5 MG CAPSULE PO PRN (21:28)
[2018-02-16 08:00] VITALS: BP 104/82
[2018-02-16] MEDS: PANTOPRAZOLE 40 MG TABLET.DR PO SCH (08:14)
[2018-02-16] MEDS: CIPROFLOXACIN HCL 500 MG TABLET PO SCH (08:14)
[2018-02-16] MEDS: OLANZAPINE 2.5 MG TABLET PO SCH ×3 (08:14→20:14)
[2018-02-16] MEDS: CYANOCOBALAMIN 500 MCG TABLET PO SCH (08:14)
[2018-02-16] MEDS: ASPIRIN 81 MG TAB.CHEW PO SCH (08:14)
[2018-02-16] MEDS: VALSARTAN 80 MG TABLET PO SCH (08:15)
[2018-02-16] MEDS: Z GUARD REMEDY 2 OZ OINT TP SCH (08:18)
[2018-02-16] MEDS: VENLAFAXINE XR 37.5 MG CAP.SR.24H PO SCH (12:42)
--- NOTE | 2018-02-16 15:42 | NUR ---
DISCHARGE NOTE: Pt being discharged at 8:00pm [facility] [address] [facility] [address] via [facility] ambulance trip #[id number]. Pts mood and affect were flat and unresponsive. Pt is not a threat to self or others. Pts daughter Christian Howard [phone] has been notified and agrees with discharge plan. Pts daughter will be present during discharge. Pt will be under the medical care of Hydrographic Surveyor: Dr. Juliana Joshua [address] [facility] [address] [address] and Psychiatrist: Dr. Karla Rogel [address] [address] [phone]. The multidisciplinary exitcare form was done, printed, signed, and given to the patient.
[2018-02-16 16:00] VITALS: BP 105/68
--- NOTE | 2018-02-16 19:25 | NUR ---
GPS/RN-NOTES PATIENT LAYING IN HER BED AWARE,ALERT, NO ACUTE DISTRESS NOTED. DAUGHTER AT BEDSIDE. PATIENT WILL BE D/Cd TO [facility]. ENDORSED TO INCOMING NURSE FOR CONTINUITY OF CARE AND FOR THE DISCHARGE PROCESS.
[2018-02-16 20:00] VITALS: BP 94/48
--- NOTE | 2018-02-16 20:22 | NUR ---
GPS RN NOTE: PATIENT DISCHARGE TO [facility], STABLE CONDITION, V/S STABLE, NO SOB, NO ACUTE DISTRESS, BREATHING EVEN AND UNLABORED, NO S/S OF PAIN AND DISCOMFORT, ZYPREXA 2.5MG 2000 DOSE GIVEN, CALM, COOPERATIVE, DENIES SI/HI, DAUGHTER ACCOMPANIED THE PATIENT. PATIENT PICKED UP VIA AMBULANCE C/O ALYSSA WITH 2 EMT ASSIST. REPORT GIVEN TO EPHRAIM.
== END 2018-02-16 20:20 | DRG 885 ==
LOC: GPS 14:37
PROVIDERS: ADMIT Psychiatry & Neurology Psychosomatic Medicine; ATTEND Nurse Practitioner Acute Care
DX: F25.0 Schizoaffective disorder, bipolar type (principal); F02.80 Dementia in other diseases classified elsewhere, unspecified severity, without behavioral disturbance, psychotic disturbance, mood disturbance, and anxiety; N17.0 Acute kidney failure with tubular necrosis; G93.40 Encephalopathy, unspecified; E44.0 Moderate protein-calorie malnutrition; E88.09 Other disorders of plasma-protein metabolism, not elsewhere classified; G30.9 Alzheimer's disease, unspecified; F31.9 Bipolar disorder, unspecified; D63.8 Anemia in other chronic diseases classified elsewhere; E86.0 Dehydration; E78.5 Hyperlipidemia, unspecified; E87.6 Hypokalemia; E53.8 Deficiency of other specified B group vitamins; F41.9 Anxiety disorder, unspecified; I10 Essential (primary) hypertension; K21.9 Gastro-esophageal reflux disease without esophagitis; Z86.73 Personal history of transient ischemic attack (TIA), and cerebral infarction without residual deficits; Z87.11 Personal history of peptic ulcer disease; Z91.19 Patient's noncompliance with other medical treatment and regimen; R74.0 Nonspecific elevation of levels of transaminase and lactic acid dehydrogenase [LDH]; Z68.22 Body mass index [BMI] 22.0-22.9, adult; F29 Unspecified psychosis not due to a substance or known physiological condition
CPT/HCPCS: 36415; 80053-TC; 80061-TC; 83735-TC; 84100-TC; 85025-TC; 87081-TC